=== PATIENT | female | born 1940 | race Caucasian/White ===

== ENCOUNTER 2016-11-28 18:40 | Inpatient (IN) ==
[2016-11-28] MEDS ORDERED: Budesonide/Formoterol 80/4.5 MDI IH PRN (20:08)
[2016-11-29 05:33] LABS: INR 1.1; Prothrombin Time 11.3 Seconds (9.4-12.1)
[2016-11-29 05:34] LABS: Basophils # 0.1 K/mcL (0.0-0.2); Basophils % 0.8 %; Eosinophils # 0.9 K/mcL (0.0-0.6); Eosinophils % 5.8 %; Hematocrit 40.5 % (35.3-44.9); Hemoglobin 14.2 g/dL (11.5-15.4); Immature Granulocytes % 0.5 % (0-4); Lymphocytes # 1.7 K/mcL (0.6-4.6); Lymphocytes % 10.6 %; Mean Corpuscular HGB Conc 35.1 g/dL (31.6-35.5); Mean Corpuscular Hemoglobin 29.6 pg (28.0-33.3); Mean Corpuscular Volume 84.6 fL (83.0-100.0); Mean Platelet Volume 9.5 fL (9.4-12.4); Monocytes # 0.5 K/mcL (0.0-1.3); Monocytes % 3.3 %; Neutrophils # 12.6 K/mcL (1.6-8.9); Platelet Count 336 K/mcL (140-400); Red Blood Count 4.79 M/mcL (3.82-4.97); Red Cell Distribution Width 14.6 % (11.5-14.5)
[2016-11-29 05:36] LABS: Activated Partial Thrombo Time 30.3 Seconds (26.0-36.0)
[2016-11-29 05:45] LABS: BUN/Creatinine Ratio 14 (6-26); Blood Urea Nitrogen 11 mg/dL (7-20); Carbon Dioxide 25 mEq/L (19-29); Chloride 103 mEq/L (98-109); Glucose 95 mg/dL (70-99); Osmolality,Calculated 279 (280-300); Potassium 3.9 mEq/L (3.5-4.5); Sodium 135 mEq/L (136-145); eGFR For African Americans > 60 (> 60); eGFR For Non-African Americans > 60 (> 60)
[2016-11-29] MEDS ORDERED: Aspirin Enteric Coated 81 MG Tablet PO SCH (09:00)
[2016-11-29] MEDS ORDERED: Losartan/HCTZ 50-12.5 TABLET PO SCH (09:00)
[2016-11-29] MEDS: Fluticasone Propionate Nasal 50 MCG/SPRAY BOTTLE NS SCH ×2 (09:17→21:34)
[2016-11-29] MEDS: (Krill Oil [Krill Oil] 500 MG) PO SCH (09:18)
[2016-11-29] MEDS: Multivit/Ca/Min/Fe/FA 1 TAB TABLET PO SCH (09:19)
[2016-11-29] MEDS: *HR* Enoxaparin 40 MG/0.4 ML SYRINGE SQ SCH (09:19)
[2016-11-29] MEDS: amLODIPine 5 MG TABLET PO SCH (09:19)
[2016-11-29] MEDS: Aspirin Enteric Coated 325 MG Tablet PO SCH (10:38)
--- NOTE | 2016-11-29 13:36 | Internal Med Progress Note ---
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 (2) Leukocytosis Current Visit: No Status: Acute Assessment and plan: Will follow like Qualifiers: Leukocytosis type: unspecified Qualified Code(s): D72.829 - Elevated white blood cell count, unspecified (3) Neutrophilia Current Visit: No Status: Acute Assessment and plan: The above (4) HTN (hypertension) Current Visit: No Status: Acute Assessment and plan: Blood pressures controlled Qualifiers: Hypertension type: essential hypertension Qualified Code(s): I10 - Essential (primary) hypertension - Time Spent With Patient less than 15 minutes - Subjective Interval history: No complaints here after CVA - Constitutional Vitals: Temp Pulse Resp BP Pulse Ox 98.1 F 65 16 162/67 96 11/29/16 11:56 11/29/16 11:56 11/29/16 11:56 11/29/16 11:56 11/29/16 11:56 - Head Head exam: Present: atraumatic, normal inspection, normocephalic - Neck Neck exam general surgery: Present: supple, trachea midline. Absent: lymphadenopathy - Respiratory Respiratory exam: Present: CTAB. Absent: accessory muscle use, rales, rhonchi, wheezes Internal Medicine: Result - Labs CBC & Chem 7: 11/29/16 05:05 11/29/16 05:05 Labs: Short CBC 11/29/16 Range/Units 05:05 WBC 16.0 H (4.3-11.1) K/mcL Hgb 14.2 (11.5-15.4) g/dL Hct 40.5 (35.3-44.9) % Plt Count 336 (140-400) K/mcL Neutrophils # 12.6 H (1.6-8.9) K/mcL BMP 11/29/16 05:05 Sodium 135 L Potassium 3.9 Chloride 103 Carbon Dioxide 25 BUN 11 Creatinine 0.81 Glucose 95 Calcium 9.0 Labs look stable YK [facility] - ABG Interpretation ABG results: PT/INR, D-dimer PT 11.3 Seconds (9.4-12.1) 11/29/16 05:05 Consult Discharge Plan - Plan Referrals: Ha Hunt DO [Primary Care Provider] -
[2016-11-29] MEDS: Losartan/HCTZ 50-12.5 TABLET PO SCH (21:33)
[2016-11-30 05:41] LABS: Basophils # 0.1 K/mcL (0.0-0.2); Basophils % 0.9 %; Eosinophils # 0.9 K/mcL (0.0-0.6); Eosinophils % 5.6 %; Hematocrit 40.7 % (35.3-44.9); Hemoglobin 14.2 g/dL (11.5-15.4); Immature Granulocytes % 0.3 % (0-4); Lymphocytes # 1.6 K/mcL (0.6-4.6); Lymphocytes % 10.7 %; Mean Corpuscular HGB Conc 34.9 g/dL (31.6-35.5); Mean Corpuscular Hemoglobin 29.6 pg (28.0-33.3); Mean Platelet Volume 10.2 fL (9.4-12.4); Monocytes # 0.5 K/mcL (0.0-1.3); Monocytes % 3.2 %; Neutrophils # 12.1 K/mcL (1.6-8.9); Platelet Count 357 K/mcL (140-400); Red Blood Count 4.79 M/mcL (3.82-4.97); Red Cell Distribution Width 14.5 % (11.5-14.5); Segmented Neutrophils % 79.3 %
[2016-11-30] MEDS: *HR* Enoxaparin 40 MG/0.4 ML SYRINGE SQ SCH (08:19)
[2016-11-30] MEDS: Aspirin Enteric Coated 325 MG Tablet PO SCH (08:20)
[2016-11-30] MEDS: amLODIPine 5 MG TABLET PO SCH (08:20)
[2016-11-30] MEDS: Multivit/Ca/Min/Fe/FA 1 TAB TABLET PO SCH (08:20)
[2016-11-30] MEDS: (Krill Oil [Krill Oil] 500 MG) PO SCH (08:26)
[2016-11-30] MEDS: Fluticasone Propionate Nasal 50 MCG/SPRAY BOTTLE NS SCH (08:26)
--- NOTE | 2016-11-30 11:23 | Internal Med Progress Note ---
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 (2) Leukocytosis Current Visit: No Status: Acute Assessment and plan: White count is down slightly will follow Qualifiers: Leukocytosis type: unspecified Qualified Code(s): D72.829 - Elevated white blood cell count, unspecified (3) Neutrophilia Current Visit: No Status: Acute Assessment and plan: The above (4) HTN (hypertension) Current Visit: No Status: Acute Assessment and plan: Well-controlled Qualifiers: Hypertension type: essential hypertension Qualified Code(s): I10 - Essential (primary) hypertension - Time Spent With Patient less than 15 minutes - Subjective Interval history: No complaints here after CVA. - Constitutional Vitals: Temp Pulse Resp BP Pulse Ox 97.7 F 68 16 151/76 94 11/30/16 08:00 11/30/16 08:00 11/30/16 08:00 11/30/16 08:00 11/30/16 08:00 - Head Head exam: Present: atraumatic, normal inspection, normocephalic - Neck Neck exam general surgery: Present: supple, trachea midline. Absent: lymphadenopathy - Respiratory Respiratory exam: Present: CTAB. Absent: accessory muscle use, rales, rhonchi, wheezes - Cardiovascular Cardiovascular exam: Present: RRR, +S1, +S2. Absent: diastolic murmur, gallop, rubs, systolic murmur - GI/Abdominal GI/Abdominal exam: Present: normal bowel sounds, soft, no peritoneal signs. Absent: distended, tenderness Internal Medicine: Result - Labs CBC & Chem 7: 11/30/16 05:20 11/29/16 05:05 Labs: Short CBC 11/30/16 Range/Units 05:20 WBC 15.3 H (4.3-11.1) K/mcL Hgb 14.2 (11.5-15.4) g/dL Hct 40.7 (35.3-44.9) % Plt Count 357 (140-400) K/mcL Neutrophils # 12.1 H (1.6-8.9) K/mcL Labs stable - ABG Interpretation ABG results: PT/INR, D-dimer PT 11.3 Seconds (9.4-12.1) 11/29/16 05:05 Consult Discharge Plan - Plan Referrals: Ha Hunt DO [Primary Care Provider] -
[2016-11-30] MEDS: Losartan/HCTZ 50-12.5 TABLET PO SCH (21:47)
[2016-12-01 05:42] LABS: Basophils # 0.1 K/mcL (0.0-0.2); Basophils % 0.9 %; Eosinophils % 6.4 %; Hematocrit 42.3 % (35.3-44.9); Hemoglobin 14.8 g/dL (11.5-15.4); Immature Granulocytes % 0.4 % (0-4); Lymphocytes # 1.7 K/mcL (0.6-4.6); Lymphocytes % 10.8 %; Mean Corpuscular Hemoglobin 29.7 pg (28.0-33.3); Mean Corpuscular Volume 84.8 fL (83.0-100.0); Mean Platelet Volume 9.6 fL (9.4-12.4); Monocytes # 0.6 K/mcL (0.0-1.3); Monocytes % 3.5 %; Neutrophils # 12.3 K/mcL (1.6-8.9); Platelet Count 349 K/mcL (140-400); Red Blood Count 4.99 M/mcL (3.82-4.97); Red Cell Distribution Width 14.3 % (11.5-14.5)
[2016-12-01 05:58] LABS: BUN/Creatinine Ratio 14 (6-26); Blood Urea Nitrogen 12 mg/dL (7-20); Calcium 9.5 mg/dL (8.6-10.8); Carbon Dioxide 24 mEq/L (19-29); Chloride 101 mEq/L (98-109); Glucose 96 mg/dL (70-99); Osmolality,Calculated 278 (280-300); Potassium 3.9 mEq/L (3.5-4.5); Sodium 134 mEq/L (136-145); eGFR For African Americans > 60 (> 60); eGFR For Non-African Americans > 60 (> 60)
[2016-12-01] MEDS: Fluticasone Propionate Nasal 50 MCG/SPRAY BOTTLE NS SCH ×2 (08:39→21:00)
[2016-12-01] MEDS: Aspirin Enteric Coated 325 MG Tablet PO SCH (08:40)
[2016-12-01] MEDS: amLODIPine 5 MG TABLET PO SCH (08:40)
[2016-12-01] MEDS: *HR* Enoxaparin 40 MG/0.4 ML SYRINGE SQ SCH (08:40)
[2016-12-01] MEDS: (Krill Oil [Krill Oil] 500 MG) PO SCH (08:40)
[2016-12-01] MEDS: Multivit/Ca/Min/Fe/FA 1 TAB TABLET PO SCH (08:40)
[2016-12-01] MEDS ORDERED: *HR* Warfarin 5 MG TABLET PO ONE (13:20)
--- NOTE | 2016-12-01 13:32 | Internal Med Progress Note ---
Date of Encounter: 12/01/16 Time of Encounter: 13:30 - Assessment and plan (1) CVA (cerebral vascular accident) Current Visit: Yes Status: Acute Assessment and plan: Patient's working with the therapist. 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 - Constitutional Vitals: Temp Pulse Resp BP Pulse Ox 97.6 F 63 16 128/77 92 12/01/16 07:08 12/01/16 07:08 12/01/16 07:08 12/01/16 07:08 12/01/16 07:08 - Head Head exam: Present: atraumatic, normal inspection, normocephalic - Neck Neck exam general surgery: Present: supple, trachea midline. Absent: lymphadenopathy - Respiratory Respiratory exam: Present: CTAB. Absent: accessory muscle use, rales, rhonchi, wheezes - Cardiovascular Cardiovascular exam: Present: RRR, +S1, +S2. Absent: diastolic murmur, gallop, rubs, systolic murmur Internal Medicine: Result - Labs CBC & Chem 7: 12/01/16 05:25 12/01/16 05:25 Labs: Short CBC 12/01/16 Range/Units 05:25 WBC 15.8 H (4.3-11.1) K/mcL Hgb 14.8 (11.5-15.4) g/dL Hct 42.3 (35.3-44.9) % Plt Count 349 (140-400) K/mcL Neutrophils # 12.3 H (1.6-8.9) K/mcL BMP 12/01/16 05:25 Sodium 134 L Potassium 3.9 Chloride 101 Carbon Dioxide 24 BUN 12 Creatinine 0.87 Glucose 96 Calcium 9.5 Lab is stable - ABG Interpretation ABG results: PT/INR, D-dimer PT 11.3 Seconds (9.4-12.1) 11/29/16 05:05 Consult Discharge Plan - Plan Referrals: Ha Hunt DO [Primary Care Provider] -
[2016-12-01] MEDS: Losartan/HCTZ 50-12.5 TABLET PO SCH (20:52)
[2016-12-02 05:44] LABS: INR 1.1; Prothrombin Time 11.5 Seconds (9.4-12.1)
[2016-12-02] MEDS: Aspirin Enteric Coated 325 MG Tablet PO SCH (08:34)
[2016-12-02] MEDS: Multivit/Ca/Min/Fe/FA 1 TAB TABLET PO SCH (08:34)
[2016-12-02] MEDS: amLODIPine 5 MG TABLET PO SCH (08:34)
[2016-12-02] MEDS: *HR* Enoxaparin 40 MG/0.4 ML SYRINGE SQ SCH (08:35)
[2016-12-02] MEDS: (Krill Oil [Krill Oil] 500 MG) PO SCH (08:35)
--- NOTE | 2016-12-02 13:13 | Internal Med Progress Note ---
Date of Encounter: 12/02/16 Time of Encounter: 13:07 - Assessment and plan (1) CVA (cerebral vascular accident) Current Visit: Yes Status: Acute Assessment and plan: Patient's here for CVA. 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 (2) Leukocytosis Current Visit: No Status: Acute Qualifiers: Leukocytosis type: unspecified Qualified Code(s): D72.829 - Elevated white blood cell count, unspecified (3) Neutrophilia Current Visit: No Status: Acute Assessment and plan: White counts being followed (4) HTN (hypertension) Current Visit: No Status: Acute Assessment and plan: Blood pressure well controlled Qualifiers: Hypertension type: essential hypertension Qualified Code(s): I10 - Essential (primary) hypertension - Time Spent With Patient less than 15 minutes - Subjective Interval history: Since has been requested Coumadin patient refused. She is on Plavix and aspirin. - Constitutional Vitals: Temp Pulse Resp BP Pulse Ox 97.4 F L 70 16 108/65 94 12/02/16 07:00 12/02/16 07:00 12/02/16 07:00 12/02/16 07:00 12/02/16 07:00 - Head Head exam: Present: atraumatic, normocephalic - Respiratory Respiratory exam: Present: CTAB. Absent: accessory muscle use, rales, rhonchi, wheezes - Cardiovascular Cardiovascular exam: Present: RRR, +S1, +S2. Absent: diastolic murmur, gallop, rubs, systolic murmur - GI/Abdominal GI/Abdominal exam: Present: normal bowel sounds, soft, no peritoneal signs. Absent: distended, tenderness Internal Medicine: Result - Labs CBC & Chem 7: 12/01/16 05:25 12/01/16 05:25 Labs: Lab state - ABG Interpretation ABG results: PT/INR, D-dimer PT 11.5 Seconds (9.4-12.1) 12/02/16 05:35 - Impressions Impressions Chest X-Ray 12/01/16 13:37 IMPRESSION: No evidence of acute cardiopulmonary disease. D/ / Magan Hess MD / Magan Hess MD Interpreting Provider: Magan Hess MD Consult Discharge Plan - Plan Referrals: Ha Hunt DO [Primary Care Provider] -
[2016-12-02 15:04] LABS: Bilirubin,Urine Negative (Negative); Blood,Urine Negative (Negative); Clarity,Urine Clear (Clear); Color,Urine Yellow (Yellow); Glucose,Urine (UA) Normal (Normal); Ketones,Urine Negative (Negative); Leukocyte Esterase,Urine Moderate (Negative); Nitrite,Urine Negative (Negative); Protein,Urine Negative (Neg-Trace); Specific Gravity,Urine 1.015 (1.010-1.025); Urobilinogen,Urine Normal (Normal)
[2016-12-02 15:17] LABS: Bacteria,Urine Many per hpf (None-Few)
[2016-12-02 15:18] LABS: Hyaline Casts,Urine Few per lpf (None-Few)
[2016-12-02 15:19] LABS: Squamous Epithelial Cell,Urine Many per lpf (None-Few)
[2016-12-02] MEDS: Losartan/HCTZ 50-12.5 TABLET PO SCH (20:39)
[2016-12-02] MEDS ORDERED: Fluticasone Propionate Nasal 50 MCG/SPRAY BOTTLE NS SCH (21:00)
[2016-12-03] MEDS: Multivit/Ca/Min/Fe/FA 1 TAB TABLET PO SCH (08:56)
[2016-12-03] MEDS: Aspirin Enteric Coated 325 MG Tablet PO SCH (08:57)
[2016-12-03] MEDS: amLODIPine 5 MG TABLET PO SCH (08:57)
[2016-12-03] MEDS: *HR* Enoxaparin 40 MG/0.4 ML SYRINGE SQ SCH (08:57)
[2016-12-03] MEDS: (Krill Oil [Krill Oil] 500 MG) PO SCH (09:00)
[2016-12-03 09:02] VITALS: BP 151/76
--- NOTE | 2016-12-03 13:10 | Discharge Summary ---
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 (2) Leukocytosis Priority: Secondary Status: Acute Qualifiers: Leukocytosis type: unspecified Qualified Code(s): D72.829 - Elevated white blood cell count, unspecified (3) Neutrophilia Priority: Secondary Status: Acute (4) HTN (hypertension) Priority: Secondary Status: Acute Qualifiers: Hypertension type: essential hypertension Qualified Code(s): I10 - Essential (primary) hypertension - Discharge Medications Home Medications: Fluticasone/Salmeterol [Advair 250-50 Diskus] 2 inh IH BID PRN 08/08/16 [History ] Simvastatin [Zocor] 40 mg PO HS 08/08/16 [History] Amlodipine Besylate 2.5 mg PO DAILY 09/17/16 [History] Aspirin [Lo-Dose Aspirin EC] 325 mg PO DAILY 09/17/16 [History] Krill Oil 500 mg PO DAILY 09/17/16 [History] Losartan/Hydrochlorothiazide [Hyzaar 100-25 Tablet] 1 each PO DAILY 09/17/16 [ History] Multivitamin [One Daily Essential] 1 each PO DAILY 09/17/16 [History] Sertraline [Zoloft] 12.5 mg PO DAILY 09/17/16 [History] Calcium Carbonate [Calcium] 600 mg PO BID 11/28/16 [History] Triamcinolone Acetonide [Nasacort] 10.8 ml NS BID 11/28/16 [History] Allergies/Adverse Reactions: Allergies ciprofloxacin [From Cipro] Allergy (Verified 11/26/16 20:54) Rash codeine Allergy (Verified 11/26/16 20:54) Dizziness Date of admission: 11/28/16 18:43 Primary care physician: Ha Hunt, Consults: 11/28/16 19:52 Consult to Occupational Therapy [CONS] Routine Comment: Evaluate, develop and implement POC Reason for Consult: Evaluate and treat Consult to Physical Therapy [CONS] Routine Comment: Evaluate, develop and implement POC Reason for Consult: Evaluate and treat Consult to Recreational Therapy [CONS] Routine Comment: Evaluate, develop and implement POC Consult to Web Ui Software Engineer [CONS] Routine Reason for SW Consult: Evaluate and treat Consult to Speech Therapy [CONS] Routine Comment: Evaluate, develop and implement POC Reason for Consult: speech impairment Call Completed: Yes Discharging clinician: Angel Shen Anticipated date of discharge: 12/03/16 - Patient Status Disposition: Home, Self-Care Condition: Good Functional capacity at discharge: independent ambulation Overall status at discharge: patient is progressing back to baseline - Discharge Instructions Instructions: Ischemic Stroke (DC) Follow Up With: Ha Hunt DO [Primary Care Provider] - 12/15/16 9:30 am (follow up appointment) - Diet and Activity Activity: as per physical therapy Diet: advance to your usual diet Interval History: doing well. home today. possible UTI. Hospital course: Ms. Spaulding is a 76 year old female .did very well. - Time Spent with Patient Total time spent providing and/or coordinating discharge services: Less than 30 minutes - Constitutional Vitals: Temp Pulse Resp BP Pulse Ox 97.4 F L 75 14 151/76 91 12/03/16 08:00 12/03/16 08:00 12/03/16 08:00 12/03/16 08:00 12/03/16 08:00 - Head Head exam: Present: atraumatic, normocephalic - Respiratory Respiratory exam: Present: CTAB. Absent: accessory muscle use, rales, rhonchi, wheezes - Cardiovascular Cardiovascular exam: Present: RRR, +S1, +S2. Absent: diastolic murmur, gallop, rubs, systolic murmur
--- NOTE | 2017-01-13 14:32 | Internal Med History&Physical ---
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 (2) Leukocytosis Status: Acute White count was elevated slightly at 16 and this may have been due to mild U UTI or other subclinical condition also could have been central Qualifiers: Leukocytosis type: unspecified Qualified Code(s): D72.829 - Elevated white blood cell count, unspecified (3) Neutrophilia Status: Acute As above see that (4) HTN (hypertension) Status: Acute Blood pressure feels well controlled Qualifiers: Hypertension type: essential hypertension Qualified Code(s): I10 - Essential (primary) hypertension Internal Medicine - H&P: HPI Chief complaint: Patient was transferred to [place] for rehabilitation status post CVA. Admitted From: Hospital to Hospital Transfer Plans for Post Hospital Care: Home History of present illness: Ms. Spaulding is a 76 year old female Patient had a history of hypertension and apparently Past Med Surg Social Fam HX - Past Medical History Medical history: CVA, hyperlipidemia, hypertension, other Psychiatric history: anxiety, depression - Social History Smoking Status: Never smoker Smokeless Tobacco Status: No Alcohol use: none Drug use: none - Family History Mother History Unknown: Yes Father History Unknown: Yes Internal Medicine - H&P: Meds Fluticasone/Salmeterol [Advair 250-50 Diskus] 2 inh IH BID PRN 08/08/16 [History ] Simvastatin [Zocor] 40 mg PO HS 08/08/16 [History] Amlodipine Besylate 2.5 mg PO DAILY 09/17/16 [History] Aspirin [Lo-Dose Aspirin EC] 325 mg PO DAILY 09/17/16 [History] Krill Oil 500 mg PO DAILY 09/17/16 [History] Losartan/Hydrochlorothiazide [Hyzaar 100-25 Tablet] 1 each PO DAILY 09/17/16 [ History] Multivitamin [One Daily Essential] 1 each PO DAILY 09/17/16 [History] Sertraline [Zoloft] 12.5 mg PO DAILY 09/17/16 [History] Calcium Carbonate [Calcium] 600 mg PO BID 11/28/16 [History] Triamcinolone Acetonide [Nasacort] 10.8 ml NS BID 11/28/16 [History] 3 Allergy/AdvReac Type Severity Reaction Status Date / Time ciprofloxacin [From Cipro] Allergy Rash Verified 11/26/16 20:54 codeine Allergy Dizziness Verified 11/26/16 20:54 All Systems PM: A 10-system review of systems was performed and is negative for pertinent findings except as documented above in the HPI. - Constitutional Vitals: Temp Pulse Resp BP Pulse Ox 97.4 F L 75 14 151/76 91 12/03/16 08:00 12/03/16 08:00 12/03/16 08:00 12/03/16 08:00 12/03/16 08:00 - Head Head exam: Present: atraumatic, normal inspection, normocephalic - Respiratory Respiratory exam: Present: CTAB. Absent: accessory muscle use, rales, rhonchi, wheezes - Cardiovascular Cardiovascular exam: Present: RRR, +S1, +S2. Absent: diastolic murmur, gallop, rubs, systolic murmur Internal Med - H&P Results - Labs CBC & Chem 7: 12/01/16 05:25 12/01/16 05:25 Labs: Lab is stable - Impressions ITS Impressions Chest X-Ray 12/01/16 13:37 IMPRESSION: No evidence of acute cardiopulmonary disease. D/ / Magan Hess MD / Magan Hess MD Interpreting Provider: Magan Hess MD Chest X-Ray 12/02/16 13:12 IMPRESSION: No acute process. D/ / Ja Moss MD / Ja Moss MD Interpreting Provider: Ja Moss MD - Stroke Contraindication Rehab Services Not Assessed: Returned to Prior Level of Function
== END 2016-12-03 14:30 | disposition home or self-care (01) | DRG 57 ==
LOC: INPGRE 18:43
PROVIDERS: ADMIT Internal Medicine; ATTEND Internal Medicine